=== PATIENT | female | born 1960 | race Hispanic/Latino ===

== ENCOUNTER 2016-09-23 14:30 | Emergency (ER) | payer MEDICARE ==
[2016-09-23 14:30] VITALS: BMI 44.9
[2016-09-23 14:52] VITALS: TEMP 97.8
--- NOTE | 2016-09-23 15:28 | ED PDOC ---
Arrival/HPI - General Historian: Patient - History of Present Illness Time/Duration: 4-6 hours Context: Home - General Chief Complaint: Weakness/Neurological Deficit Time Seen by Provider: 09/23/16 15:05 - History of Present Illness Narrative History of Present Illness (Text): 09/23/16 15:05 This 56 yo female presents to this ED c/o left facial swelling, with sensation of numbness over left face x 4 hours. Patient stated symptoms started after eating lunch. Denies gandhi, dizziness, diplopia, dysarthria, rash, or abnormal gait. (Harjit Hurt) Past Medical History - Provider Review Nursing Documentation Reviewed: Yes - Infectious Disease Hx of Infectious Diseases: None - Tetanus Immunization Tetanus Immunization: Unknown - Past Medical History Past Medical History: Non-Contributing - Cardiac Hx Cardiac Disorders: No - Pulmonary Hx Respiratory Disorders: Yes Hx Asthma: Yes Hx Bronchitis: Yes - Neurological Hx Neurological Disorder: Yes Hx Migraine: Yes - HEENT Hx HEENT Disorder: No - Renal Hx Renal Disorder: No - Endocrine/Metabolic Hx Endocrine Disorders: No - Hematological/Oncological Hx Blood Disorders: No - Integumentary Hx Dermatological Disorder: No - Musculoskeletal/Rheumatological Hx Musculoskeletal Disorders: Yes Hx Back Pain: Yes Hx Falls: No - Gastrointestinal Hx Gastrointestinal Disorders: No - Genitourinary/Gynecological Hx Genitourinary Disorders: No - Psychiatric Hx Psychophysiologic Disorder: Yes Hx Anxiety: Yes Hx Substance Use: No - Past Surgical History Past Surgical History: Non-Contributing - Surgical History Hx Cholecystectomy: Yes Other/Comment: colon resection - Anesthesia Hx Anesthesia Reactions: No Hx Malignant Hyperthermia: No - Suicidal Assessment Feels Threatened In Home Enviroment: No Family/Social History - Physician Review Nursing Documentation Reviewed: Yes Family/Social History: No Known Family HX Smoking Status: Never Smoked Hx Alcohol Use: No Hx Substance Use: No Hx Substance Use Treatment: No Allergies/Home Meds Allergies/Adverse Reactions: Allergies No Known Allergies Allergy (Verified 09/23/16 14:54) Home Medications: Home Meds Medication Instructions Recorded Confirmed Acetaminophen/Butalbital/Caf 1 tab PO Q6 PRN 11/22/14 03/11/16 [Fioricet] ALPRAZolam [Xanax] 0.25 mg PO BID 11/23/14 03/11/16 Hydrocodone/Ibuprofen [Vicoprofen 1 tab PO Q4H PRN 12/01/14 03/11/16 7.5 mg-200 mg] Cyclobenzaprine [Flexeril] 10 mg PO TID PRN 03/11/16 03/11/16 Gabapentin [Gralise] 300 mg PO BID 03/11/16 03/11/16 Review of Systems - Review of Systems Constitutional: Normal. absent: Fatigue, Weight Change, Fevers Eyes: Normal ENT: Normal Respiratory: Normal Cardiovascular: Normal Gastrointestinal: Normal Genitourinary Female: Normal Musculoskeletal: Other (Left facial swelling) Skin: Normal. absent: Rash, Pruritis, Skin Lesions, Laceration, Abscess, Ulcer , Cellulitis Neurological: Normal Endocrine: Normal Hemo/Lymphatic: Normal Psychiatric: Normal Physical Exam Temperature: Afebrile Blood Pressure: Normal Pulse: Regular Respiratory Rate: Normal Appearance: Positive for: Well-Appearing, Non-Toxic, Comfortable Pain Distress: None Mental Status: Positive for: Alert and Oriented X 3 - Systems Exam Head: Present: Atraumatic, Normocephalic, Swelling (Mild swelling left parotid gland area. No erythema, rash, or drainage.) Pupils: Present: PERRL Extroacular Muscles: Present: EOMI Conjunctiva: Present: Normal Mouth: Present: Moist Mucous Membranes Neck: Present: Normal Range of Motion, Trachea Midline. No: Meningeal Signs, MIDLINE TENDERNESS, Paraspinal Tenderness, Lymphadenopathy Respiratory/Chest: Present: Clear to Auscultation, Good Air Exchange. No: Respiratory Distress, Accessory Muscle Use Cardiovascular: Present: Regular Rate and Rhythm, Normal S1, S2. No: Murmurs Abdomen: Present: Normal Bowel Sounds. No: Tenderness, Distention, Peritoneal Signs Back: Present: Normal Inspection Upper Extremity: Present: Normal Inspection. No: Cyanosis, Edema Lower Extremity: Present: Normal Inspection. No: Edema Neurological: Present: GCS=15, CN II-XII Intact, Speech Normal Skin: Present: Warm, Dry, Normal Color. No: Rashes Psychiatric: Present: Alert, Oriented x 3 Vital Signs Temp Pulse Resp BP Pulse Ox 09/23/16 14:50 97.8 F 100 H 18 158/91 H 97 Medical Decision Making Re-evaluation Time: 15:30 Reassessment Condition: Re-examined, Unchanged ED Course and Treatment: 09/23/16 15:30 Re-evaluation. Patient feels better. Discussed results and plan with patient who expresses understanding. All questions answered and there is agreement with the plan to discharge home with instructions. Patient stable for discharge. Return if symptoms persist or worsen. Patient was recommended to use lemon, and to massage parotid gland 3-4 times daily. Take medication as instructed, and to follow up ENT tomorrow (Harjit Hurt) I was available for consultation during PA evaluation. The chart reviewed by me , and I agree with disposition. The documented history was done by the physician banana expert. The documented physical exam was done by the physician banana expert. The documented procedures were done by the physician banana expert. (Linden Barriga) - Medication Orders Current Medication Orders: Discontinued Medications Amoxicillin/Clavulanate Potassium (Augmentin 875 Mg-125 Mg Tab) 1 tab PO STAT STA PRN Reason: Protocol Stop: 09/23/16 15:30 Disposition/Present on Arrival - Present on Arrival Any Indicators Present on Arrival: No History of DVT/PE: No History of Uncontrolled Diabetes: No Urinary Catheter: No History of Decub. Ulcer: No History Surgical Site Infection Following: None - Disposition Have Diagnosis and Disposition been Completed?: Yes Disposition Time: 15:31 Patient Plan: Discharge - Disposition Diagnosis: Parotid gland fullness Discharge Instructions (ExitCare): Sialoadenitis (ED) Additional Instructions: Call Ear Nose & throat doctor office tomorrow. Take medication as instructed. Return to emergency if symptoms worsen. Massage your parotid gland 3-5 times a day. Use Lemon. Prescriptions: Amoxicillin/Clavulanate [Augmentin 875 MG-125 MG] 1 tab PO BID #20 tab Referrals: Venkat Napoles DO [Staff Provider] - Follow up with primary Forms: WORK NOTE
[2016-09-23] MEDS ORDERED: Amoxicillin-Clav 875-125 mg Tab PO STA (15:29)
[2016-09-23 16:46] VITALS: BP 152/70; PULSE 96; RESP 16; O2SAT 100
== END 2016-09-23 15:58 | disposition home or self-care (01) ==
LOC: ED 14:30
DX: K11.8 Other diseases of salivary glands (principal)

== ENCOUNTER 2016-12-14 12:48 | Emergency (ER) | payer MEDICARE ==
[2016-12-14 12:57] VITALS: BP 122/80; PULSE 93; RESP 16; TEMP 98.2; O2SAT 96
[2016-12-14 13:10] VITALS: BMI 43.9
--- NOTE | 2016-12-14 13:42 | ED PDOC ---
Arrival/HPI - General Chief Complaint: Back Pain Time Seen by Provider: 12/14/16 13:10 - History of Present Illness Narrative History of Present Illness (Text): 12/14/16 13:42 56 y/o F w/ PMHx of obesity, chronic back pain, and anxiety presents to the ED c /o R flank pain x 4days. Pain is constant w/ radiation around the pt's right side. Pain described as sharp, especially w/ certain mvts. Pt admits to associated nausea. Pt denies F/C, SOB, CP, vomiting, D/C, dysuria, polyuria, increased urgency. Pt has had cholecystectomy and R david-colectomy. (Sylvie Rea) Past Medical History - Provider Review Nursing Documentation Reviewed: Yes - Infectious Disease Hx of Infectious Diseases: None - Tetanus Immunization Tetanus Immunization: Unknown - Past Medical History Past Medical History: Non-Contributing - Cardiac Hx Cardiac Disorders: No - Pulmonary Hx Respiratory Disorders: Yes Hx Asthma: Yes Hx Bronchitis: Yes - Neurological Hx Neurological Disorder: Yes Hx Migraine: Yes - HEENT Hx HEENT Disorder: No - Renal Hx Renal Disorder: No - Endocrine/Metabolic Hx Endocrine Disorders: No - Hematological/Oncological Hx Blood Disorders: No - Integumentary Hx Dermatological Disorder: No - Musculoskeletal/Rheumatological Hx Musculoskeletal Disorders: Yes Hx Back Pain: Yes Hx Falls: No - Gastrointestinal Hx Gastrointestinal Disorders: No - Genitourinary/Gynecological Hx Genitourinary Disorders: No - Psychiatric Hx Psychophysiologic Disorder: Yes Hx Anxiety: Yes Hx Substance Use: No - Past Surgical History Past Surgical History: Non-Contributing - Surgical History Hx Cholecystectomy: Yes Other/Comment: colon resection - Anesthesia Hx Anesthesia Reactions: No Hx Malignant Hyperthermia: No - Suicidal Assessment Feels Threatened In Home Enviroment: No Family/Social History - Physician Review Nursing Documentation Reviewed: Yes Family/Social History: No Known Family HX Smoking Status: Never Smoked Hx Alcohol Use: No Hx Substance Use: No Hx Substance Use Treatment: No Allergies/Home Meds Allergies/Adverse Reactions: Allergies No Known Allergies Allergy (Verified 09/23/16 14:54) Home Medications: Home Meds Medication Instructions Recorded Confirmed Acetaminophen/Butalbital/Caf 1 tab PO Q6 PRN 11/22/14 03/11/16 [Fioricet] ALPRAZolam [Xanax] 0.25 mg PO BID 11/23/14 03/11/16 Hydrocodone/Ibuprofen [Vicoprofen 1 tab PO Q4H PRN 12/01/14 03/11/16 7.5 mg-200 mg] Cyclobenzaprine [Flexeril] 10 mg PO TID PRN 03/11/16 03/11/16 Gabapentin [Gralise] 300 mg PO BID 03/11/16 03/11/16 Review of Systems - Physician Review All systems were reviewed & negative as marked: Yes - Review of Systems Constitutional: absent: Fevers Respiratory: absent: SOB Physical Exam Vital Signs Reviewed: Yes Temperature: Afebrile Blood Pressure: Normal Pulse: Tachycardic Respiratory Rate: Normal Appearance: Positive for: Non-Toxic, Comfortable Pain Distress: Mild Mental Status: Positive for: Alert and Oriented X 3 - Systems Exam Head: Present: Atraumatic, Normocephalic Pupils: Present: PERRL Extroacular Muscles: Present: EOMI Conjunctiva: Present: Normal Mouth: Present: Moist Mucous Membranes Respiratory/Chest: Present: Clear to Auscultation, Good Air Exchange. No: Respiratory Distress, Accessory Muscle Use Cardiovascular: Present: Regular Rate and Rhythm, Normal S1, S2. No: Murmurs Abdomen: Present: Tenderness (R flank TTP). No: Distention (obese), Peritoneal Signs Back: Present: CVA Tenderness (R). No: Midline Tenderness Upper Extremity: Present: Normal Inspection Lower Extremity: Present: Normal Inspection Neurological: Present: GCS=15, Speech Normal Skin: Present: Warm, Dry, Normal Color Psychiatric: Present: Alert, Oriented x 3, Normal Insight, Normal Concentration Medical Decision Making - Lab Interpretations I have reviewed the lab results: Yes Interpretation: No clinic. lab abnormalty - RAD Interpretation Special Crimes Investigator: Radiologist (CT A/P: No acute pathology) ED Course and Treatment: 12/14/16 13:51 56 y/o F w/ R flank/back pain and nausea - Labs - CT A/P - Urinalysis - Pepcid, Zofran, Toradol - reassess and dispo 12/14/16 14:53 Pt resting comfortably in bed. Gait steady in the ED. Labs and imaging negative for any acute pathology. Pt cleared for discharge to home with PMD f/u. (Sylvie Rea) 12/14/16 15:43 pt seen with resident, right flnank pain r/o pyelo, kidney stone, msk pain. labs imaging unremarkable. pain improved. no saddle anesthesia, no paresthesias. stable for d/c. (Raswant,Maurilio) - Lab Interpretations Lab Results: 12/14/16 14:04 12/14/16 14:04 Lab Results 12/14/16 14:04: Sodium 140, Potassium 4.1, Chloride 103, Carbon Dioxide 26, Anion Gap 15, BUN 11, Creatinine 0.8, Est GFR ( Amer) > 60, Est GFR (Non- Af Amer) > 60, Random Glucose 95, Calcium 9.0, Total Bilirubin 0.4, AST 28, ALT 45, Alkaline Phosphatase 81, Total Protein 7.4, Albumin 4.2, Globulin 3.2, Albumin/Globulin Ratio 1.3, Lipase 60 12/14/16 14:04: Urine Color Yellow, Urine Appearance Sl cloudy, Urine pH 6.0, Ur Specific [place] >= 1.030, Urine Protein Trace H, Urine Glucose (UA) Negative , Urine Ketones Negative, Urine Blood Negative, Urine Nitrate Negative, Urine Bilirubin Negative, Urine Urobilinogen 0.2, Ur Leukocyte Esterase Negative, Urine RBC Negative, Urine WBC Negative, Ur Epithelial Cells Many 12/14/16 14:04: PT 10.1, INR 0.94, APTT 25.7 12/14/16 14:04: WBC 7.1 D, RBC 4.19, Hgb 12.9, Hct 38.1, MCV 90.9, MCH 30.8, MCHC 33.9, RDW 13.5, Plt Count 249, MPV 9.4, Gran % 55.2, Lymph % (Auto) 32.3, [place] % (Auto) 7.3 H, Eos % (Auto) 4.9, Baso % (Auto) 0.3, Gran # 3.93, Lymph # 2.3, [place] # 0.5, Eos # 0.4, Baso # 0.02 - RAD Interpretation Radiology Orders: 12/14/16 13:39 ABD & PELVIS W/O PO OR IV CONT [CT] Stat - Medication Orders Current Medication Orders: Discontinued Medications Famotidine (Pepcid) 20 mg IVP STAT STA Stop: 12/14/16 13:42 Last Admin: 12/14/16 14:31 Dose: 20 mg Sodium Chloride (Sodium Chloride 0.9%) 1,000 mls @ 999 mls/hr IV .Q1H1M STA Stop: 12/14/16 14:43 Last Admin: 12/14/16 14:32 Dose: 999 mls/hr Ketorolac Tromethamine (Toradol) 30 mg IVP STAT STA Stop: 12/14/16 13:42 Last Admin: 12/14/16 14:31 Dose: 30 mg Ondansetron HCl (Zofran Inj) 4 mg IVP STAT STA Stop: 12/14/16 13:42 Last Admin: 12/14/16 14:31 Dose: 4 mg Disposition/Present on Arrival - Present on Arrival Any Indicators Present on Arrival: No History of DVT/PE: No History of Uncontrolled Diabetes: No Urinary Catheter: No History of Decub. Ulcer: No History Surgical Site Infection Following: None - Disposition Have Diagnosis and Disposition been Completed?: Yes Disposition Time: 14:49 Patient Plan: Discharge - Disposition Diagnosis: Back pain Disposition: HOME/ ROUTINE Condition: STABLE Discharge Instructions (ExitCare): Acute Low Back Pain (ED), Flank Pain (ED), Chronic Back Pain (ED), Back Pain (ED) Additional Instructions: Follow up with primary medical doctor within 1 week Take all medication as prescribed Apply warm and/or cold compress to affected areas May supplement pain medication with over the counter Tylenol Return to the ED if any new or concern symptoms develop Referrals: Leigh Junior DO [Primary Care Provider] - Follow up with primary
[2016-12-14] MEDS ORDERED: Sodium Chloride 0.9% 1,000 ML IV STA (13:43)
[2016-12-14 14:05] LABS: ADD MANUAL DIFF? NO
[2016-12-14 14:07] LABS: BASO # 0.02 K/mm3 (0.0-2.0); BASO % 0.3 % (0.0-3.0); EOS # 0.4 (0.0-0.7); EOS % 4.9 % (1.5-5.0); GRAN # 3.93 (1.4-6.5); GRAN % 55.2 % (50.0-68.0); HEMATOCRIT 38.1 % (36.0-48.0); LYMPH # 2.3 (1.2-3.4); LYMPH % 32.3 % (22.0-35.0); MEAN CELL VOLUME 90.9 fL (80.0-105.0); MEAN CORPUSCULAR HEMOGLOBIN 30.8 pg (25.0-35.0); MEAN CORPUSCULAR HGB CONC 33.9 g/dl (31.0-37.0); MEAN PLATELET VOLUME 9.4 fl (7.0-11.0); MONO # 0.5 (0.1-0.6); MONO % 7.3 % (1.0-6.0); PLATELET COUNT 249 10^3/uL (120.0-450.0); RED CELL DISTRIBUTION WIDTH 13.5 % (11.5-14.5); URINE BILIRUBIN NEGATIVE (NEGATIVE); URINE BLOOD NEGATIVE (NEGATIVE); URINE GLUCOSE (UA) NEGATIVE (NEGATIVE); URINE KETONE NEGATIVE (NEGATIVE); URINE LEUKOCYTE ESTERASE NEGATIVE Leu/uL (NEGATIVE); URINE PROTEIN TRACE mg/dL (<30 mg/dL); URINE UROBILINOGEN 0.2 E.U./dL (<1 E.U./dL); WHITE BLOOD COUNT 7.1 10^3/ul (4.5-11.0)
[2016-12-14 14:10] LABS: URINE APPEARANCE SL CLOUDY (CLEAR); URINE COLOR YELLOW (YELLOW)
[2016-12-14 14:12] LABS: URINE EPITHELIAL CELLS MANY /hpf (0-5); URINE RBC NEGATIVE /hpf (0-2); URINE WBC NEGATIVE /hpf (0-6)
[2016-12-14 14:17] LABS: ALB/GLOB RATIO 1.3 (1.1-1.8); ALKALINE PHOSPHATASE 81 U/L (38-133); ALT/SGPT 45 U/L (7-56); AST/SGOT 28 U/L (15-39); BILIRUBIN,TOTAL 0.4 mg/dL (0.2-1.3); BLOOD UREA NITROGEN 11 mg/dL (7-21); CARBON DIOXIDE 26 mmol/L (21-33); CHLORIDE 103 mmol/L (98-107); GFR AFRICAN-AMERICAN > 60; GLUCOSE,RANDOM 95 mg/dL (70-110); LIPASE 60 U/L (23-300); POTASSIUM 4.1 mmol/L (3.6-5.0); SODIUM 140 mmol/L (132-148); TOTAL PROTEIN 7.4 g/dL (5.8-8.3)
[2016-12-14 14:18] LABS: INR 0.94 (0.93-1.08); PARTIAL THROMBOPLASTIN TIME 25.7 Seconds (23.7-30.8)
--- NOTE | 2016-12-14 14:46 | CT ---
PROCEDURE: CT Abdomen and Pelvis without intravenous contrast HISTORY: R CVA tenderness COMPARISON: 03/11/2016 TECHNIQUE: Without contrast.. Contrast Dose: Radiation dose: Total exam DLP = 1294 mGy-cm. This CT exam was performed using one or more of the following dose reduction techniques: Automated exposure control, adjustment of the mA and/or kV according to patient size, and/or use of iterative reconstruction technique. FINDINGS: LOWER THORAX: Unremarkable. LIVER: Unremarkable. No gross lesion or ductal dilatation. GALLBLADDER AND BILE DUCTS: Gallbladder removed PANCREAS: Unremarkable. No gross lesion or ductal dilatation. SPLEEN: Unremarkable. ADRENALS: Unremarkable. No mass. KIDNEYS AND URETERS: Unremarkable. No hydronephrosis. No solid mass. VASCULATURE: Unremarkable. No aortic aneurysm. BOWEL: Unremarkable. No obstruction. No gross mural thickening. Partial resection of the right side of the colon. A suture line is seen. APPENDIX: Removed PERITONEUM: Unremarkable. No free fluid. No free air. LYMPH NODES: Unremarkable. No enlarged lymph nodes. BLADDER: Unremarkable. REPRODUCTIVE: Unremarkable. BONES: No acute fracture. OTHER FINDINGS: None. IMPRESSION: No acute findings
== END 2016-12-14 15:12 | disposition home or self-care (01) ==
LOC: ED 12:48
DX: M54.9 Dorsalgia, unspecified (principal); R10.9 Unspecified abdominal pain; F41.9 Anxiety disorder, unspecified
CPT/HCPCS: 74176; 80053; 81001; 83690; 85025; 85610; 85730; 96361; 96374; 96375; 99283; J1885; J2405; J7040